=== PATIENT | female | born 1980 | race Caucasian/White ===

== ENCOUNTER 2022-04-07 18:27 | Emergency (ER) | payer OTHER ==
[~2022-04-07] VITALS: Ht 165.1 cm; Wt 59.1 kg
[2022-04-07] MEDS ORDERED: normal saline 1000ML IV soln IVB ONE (18:30)
[2022-04-07] MEDS ORDERED: CefTRIAXone 2gm/D5W 50ml BAG 50 ML IV ONE (18:40)
[2022-04-07] MEDS ORDERED: normal saline 1000ML IV soln IV ONE (18:40)
[2022-04-07] MEDS ORDERED: tranexamic acid 100mg/ml inj. IV ONE (18:45)
[2022-04-07 19:02] LABS: BASOPHILS # (AUTO) 0.1 X10'3 (0-0.2); BASOPHILS % (AUTO) 0.6 % (0-1); EOSINOPHILS # (AUTO) 0.1 X10'3 (0-0.9); EOSINOPHILS % (AUTO) 0.9 % (0-6); HEMATOCRIT 32.3 % (35.0-45.0); HEMOGLOBIN 11.4 g/dl (12.0-16.0); LYMPHOCYTES # (AUTO) 3.1 X10'3 (1.1-4.8); LYMPHOCYTES % (AUTO) 34.8 % (21-51); MEAN CORPUSCULAR HEMOGLOBIN 30.5 PG (27.0-31.0); MEAN CORPUSCULAR HGB CONC 35.2 g/dL (33.0-36.5); MEAN CORPUSCULAR VOLUME 86.5 FL (78-98); MONOCYTES # (AUTO) 0.6 X10'3 (0-0.9); MONOCYTES % (AUTO) 6.2 % (2-12); NEUTROPHILS # (AUTO) 5.2 X10'3 (1.8-7.7); NEUTROPHILS % (AUTO) 57.5 % (42-75); PLATELET COUNT 206 X10'3 (140-440); RED BLOOD COUNT 3.73 X10'6 (4.20-5.60); RED CELL DISTRIBUTION WIDTH 13.1 % (11.5-14.5)
[2022-04-07 19:07] LABS: APTT 23 SECONDS (22-32)
[2022-04-07 19:11] LABS: ALANINE AMINOTRANSFERASE 14 U/L (12-78); ALBUMIN 3.5 G/DL (3.4-5.0); ALBUMIN/GLOBULIN RATIO 1.1 (1.1-1.5); ALKALINE PHOSPHATASE 53 IU/L (46-116); ANION GAP 13 (8-16); ASPARTATE AMINO TRANSFERASE 11 U/L (10-37); BILIRUBIN,TOTAL 0.3 MG/DL (0.1-1.0); BLOOD UREA NITROGEN 10 MG/DL (7-18); BUN/CREATININE RATIO 15.4 (6.6-38.0); CALCIUM 8.5 MG/DL (8.5-10.1); CHLORIDE 104 MMOL/L (99-107); CREATININE 0.65 MG/DL (0.40-0.90); GLUCOSE 121 MG/DL (70-104); SODIUM 138 MMOL/L (135-145); TOTAL CARBON DIOXIDE 21.1 MMOL/L (24-32); TOTAL PROTEIN 6.8 G/DL (6.4-8.2); eGFR > 90 ML/MIN
[2022-04-07 19:26] LABS: POTASSIUM 2.6 MMOL/L (3.5-5.1)
[2022-04-07] MEDS ORDERED: potassium Cl 20 mEq SR tablet PO STA (19:29)
[2022-04-07] MEDS ORDERED: potassium Cl 10 mEq/100mL bag IV ONE (19:30)
[2022-04-07 20:39] LABS: HEMATOCRIT 22.7 % (35.0-45.0); HEMOGLOBIN 7.7 g/dl (12.0-16.0); MEAN CORPUSCULAR HEMOGLOBIN 29.8 PG (27.0-31.0); MEAN CORPUSCULAR HGB CONC 33.8 g/dL (33.0-36.5); MEAN CORPUSCULAR VOLUME 88.1 FL (78-98); PLATELET COUNT 145 X10'3 (140-440); RED BLOOD COUNT 2.57 X10'6 (4.20-5.60); WHITE BLOOD COUNT 13.1 X10'3 (4.5-11.0)
[2022-04-07 21:10] VITALS: BP 85/50
[2022-04-07 21:26] VITALS: BP 81/53
[2022-04-07 22:29] VITALS: BP 85/50
== END 2022-04-07 22:33 | disposition short-term general hospital (02) ==
LOC: ER 18:28
DX: O02.1 Missed abortion (principal); Z20.822 Contact with and (suspected) exposure to COVID-19; O46.91 Antepartum hemorrhage, unspecified, first trimester; D64.9 Anemia, unspecified; Z3A.09 9 weeks gestation of pregnancy
CPT/HCPCS: 36415; 36430; 76801; 80053; 83605; 84145; 84702; 85025; 85027; 85610; 85730; 86885; 86900; 86901; 86920; 87040; 87635; 93005; 96365; 96375; 99291; 99292; C9803; J0696; J3480; J3490; J7030; J7040; P9016; J7060